=== PATIENT | female | born 1970 | race Caucasian/White ===

== ENCOUNTER 2018-08-11 18:12 | Emergency (ER) | payer OTHER ==
--- NOTE | 2018-08-11 18:23 | ERPHSYRPT ---
- History of Present Illness Time Seen by Provider: 08/11/18 18:22 Source: patient, family Exam Limitations: no limitations Physician History: 47 y/o white female presents with bilat earaches left worse than right. pt went to pcp today for general check up. pt also had both ears evaluated. significant earwax present bilat. after attempts to remove left side pt was in pain and asked them to stop. pt did not have earwax removed. she has sig pain in both ears. Timing/Duration: gradual onset Severity: mild ENT Location: ear (R), ear (L) Associated Symptoms: ear pain (R), ear pain (L), hearing loss (mild bilat secondary to wax), No cough, No neck pain, No ringing of ears, No sinus infection, No sore throat Allergies/Adverse Reactions: Iodinated Contrast- Oral and IV Dye Allergy (Verified 08/11/18 18:33) - Review of Systems Constitutional: No Symptoms Eyes: No Symptoms Ears, Nose, & Throat: Ear Pain Respiratory: No Symptoms, No Cough, No Dyspnea, No Stridor, No Wheezing Cardiac: No Symptoms, No Chest Pain, No Palpitations, No Syncope Abdominal/Gastrointestinal: No Symptoms, No Abdominal Pain, No Nausea, No Vomiting, No Diarrhea Genitourinary Symptoms: No Symptoms, No Dysuria, No Frequency, No Hematuria Musculoskeletal: No Symptoms Skin: No Symptoms Neurological: No Symptoms Psychological: No Symptoms Endocrine: No Symptoms Hematologic/Lymphatic: No Symptoms Immunological/Allergic: No Symptoms All Other Systems: Reviewed and Negative - Past Medical History Pertinent Past Medical History: Yes Neurological History: No Pertinent History ENT History: No Pertinent History Cardiac History: No Pertinent History Respiratory History: No Pertinent History Endocrine Medical History: No Pertinent History Musculoskeletal History: No Pertinent History GI Medical History: No Pertinent History History: No Pertinent History Psycho-Social History: No Pertinent History Female Reproductive Disorders: No Pertinent History - Past Surgical History Neuro Surgical History: No Pertinent History Cardiac: No Pertinent History Respiratory: No Pertinent History Gastrointestinal: No Pertinent History Genitourinary: No Pertinent History Musculoskeletal: No Pertinent History Female Surgical History: No Pertinent History - Nursing Vital Signs Nursing Vital Signs: Initial Vital Signs Temperature 98.4 F 08/11/18 18:19 Pulse Rate 102 H 08/11/18 18:19 Respiratory Rate 20 08/11/18 18:19 Blood Pressure 177/144 08/11/18 18:19 O2 Sat by Pulse Oximetry 97 08/11/18 18:19 Pain Scale Pain Intensity 5 - Physical Exam General Appearance: no apparent distress, alert, anxiety Eye Exam: bilateral eye: normal inspection, PERRL, EOMI Ear Exam: bilateral ear: auricle normal, tenderness, other (bilat canals and tms obscured by wax) Nasal Exam: normal inspection Throat Exam: normal, pharynx normal Neck Exam: normal inspection, non-tender, supple, full range of motion, trachea midline Cardiovascular/Respiratory Exam: chest non-tender Abdominal Exam: non-tender Neurologic Exam: alert, oriented x 3, cooperative, 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 add ibuprofe 600mg orally 3 times daily with food for pain. follow up with ENT for earwax removal if you do not want to go back with primary physician for procedure. Prescriptions: Hydrocodone/APAP 5/325 [[place] 5/325 mg] 1 each PO Q12H PRN PRN #5 tablet MDD 2 PRN Reason: Pain Cephalexin Mh 500 mg [Keflex 500 mg] 500 mg PO TID #15 capsule
[2018-08-11 18:32] VITALS: BP 177/144; PULSE 102; O2SAT 97
== END 2018-08-11 19:20 | disposition home or self-care (01) ==
LOC: ED 18:12
DX: H61.23 Impacted cerumen, bilateral (principal); H92.03 Otalgia, bilateral
CPT/HCPCS: 99283